=== PATIENT | female | born 1950 | race Caucasian/White ===

== ENCOUNTER → 2019-04-27 | Outpatient (CLI) | payer MEDICARE | END | disposition home or self-care (01) | LOC: PLD 11:16 → LAB SHORT 11:16 | DX: L82.1 Other seborrheic keratosis (principal) | CPT/HCPCS: 88305 ==

== ENCOUNTER → 2020-04-17 | Outpatient (CLI) | payer MEDICARE | END | disposition home or self-care (01) | LOC: LAB SHORT 10:58 → LAB EV 10:58 | DX: R53.83 Other fatigue (principal) | CPT/HCPCS: U0003 ==

== ENCOUNTER → 2020-09-28 | Outpatient (CLI) | payer MEDICARE | LOC: PLD 12:35 → LAB SHORT 12:35 | DX: D23.71 Other benign neoplasm of skin of right lower limb, including hip (principal) | CPT/HCPCS: 88305 ==